=== PATIENT | male | born 1955 | race Caucasian/White ===

== ENCOUNTER 2019-03-12 12:14 | Emergency (ER) | payer BC ==
[2019-03-12 12:40] VITALS: BP 147/93
--- NOTE | 2019-03-12 13:00 | ED ---
Throat Pain/Nasal Congestion - HPI Summary HPI Summary: 63 yr old male with the complaint of stye to the lower left eyelid. Onset about three days ago. He has had irritation to left conjunctiva and now both eyes with irritation. No contact lenses. She has swelling to the medial lower left eyelid with yellow drainage from the stye area. No fever or chills. No pain on movement of eyes. No other complaints. - History of Current Complaint Chief Complaint: UCEye Time Seen by Provider: 03/12/19 12:41 - Allergies/Home Medications Allergies/Adverse Reactions: Allergies Allergy/AdvReac Type Severity Reaction Status Date / Time No Known Allergies Allergy Verified 03/12/19 12:36 Home Medications: Home Medications High Cholesterol Med 1 tab PO DAILY 03/12/19 [History Confirmed 03/12/19] PMH/Surg Hx/FS Hx/Imm Hx Cardiovascular History: Reports: Hx Hypertension - on meds Infectious Disease History: No Infectious Disease History: Denies: Traveled Outside the [place] in Last 30 Days - Family History Known Family History: Negative: Hypertension, Diabetes - Social History Alcohol Use: Occasionally Substance Use Type: Reports: None Smoking Status (MU): Former Smoker Review of Systems Constitutional: Negative Positive: Drainage - from left lower eyelid sty. , Erythema - bilateral conjunctiva All Other Systems Reviewed And Are Negative: Yes Physical Exam Triage Information Reviewed: Yes Vital Signs On Initial Exam: Initial Vitals Temp Pulse Resp BP Pulse Ox 98.1 F 86 16 147/93 97 03/12/19 12:34 03/12/19 12:34 03/12/19 12:34 03/12/19 12:34 03/12/19 12:34 Vital Signs Reviewed: Yes Appearance: Positive: Well-Appearing, No Pain Distress Skin: Positive: Warm, Skin Color Reflects Adequate Perfusion Head/Face: Positive: Normal Head/Face Inspection Eyes: Positive: EOMI, BETH, Conjunctiva Inflammed - bilateral, Discharge, Other : - left lower eyelid with stye present. ENT: Positive: Normal ENT inspection Neck: Positive: Nontender Respiratory/Lung Sounds: Positive: Clear to Auscultation, Breath Sounds Present Cardiovascular: Positive: RRR. Negative: Murmur Abdomen Description: Negative: Distended Musculoskeletal: Positive: Strength/ROM Intact Neurological: Positive: Sensory/Motor Intact, Alert, Oriented to Person Place, Time, CN Intact II-III Psychiatric: Positive: Normal Diagnostics - Vital Signs Vital Signs Temp Pulse Resp BP Pulse Ox 03/12/19 12:34 98.1 F 86 16 147/93 97 - Laboratory Lab Statement: Any lab studies that have been ordered have been reviewed, and results considered in the medical decision making process. EENT Course/Dx - Course Course Of Treatment: 63 yr old with conjunctivitis bilateral and stye lower left eyelid. Rx with bleph -10 and also keflex. - Diagnoses Provider Diagnoses: Conjunctivitis, Hordeolum internum left lower eyelid, Hypertension Discharge - Sign-Out/Discharge Documenting (check all that apply): Patient Departure All imaging exams completed and their final reports reviewed: No Studies - Discharge Plan Condition: Good Disposition: HOME Prescriptions: Cephalexin CAP* [Keflex CAP*] 500 mg PO TID #30 cap Sulfacetamide 10 % OPTH.ROSE* [Sulamyd 10% Opth*] 1 drop BOTH EYES Q4H #1 btl Patient Education Materials: Stye (ED), Conjunctivitis (ED), Hypertension (ED) Referrals: Dl Quezada DO [Primary Care Provider] - 2 Days Margarita Owens MD [Medical Doctor] - 2 Days - Billing Disposition and Condition Condition: GOOD Disposition: Home
== END 2019-03-12 12:58 | disposition home or self-care (01) ==
LOC: UCCORT 12:14
DX: H10.33 Unspecified acute conjunctivitis, bilateral (principal); H00.015 Hordeolum externum left lower eyelid; I10 Essential (primary) hypertension; Z87.891 Personal history of nicotine dependence
CPT/HCPCS: 99212; G0463